=== PATIENT | male | born 1985 | race Caucasian/White ===

== ENCOUNTER 2024-12-27 13:31 | Outpatient (CLI) | payer OTHER ==
[2024-12-27 14:25] LABS: LEUKOCYTE ESTERASE ,URINE NEGATIVE (Neg); MEAN PLATELET VOLUME 8.3 FL (7.4-10.4); NITRITES, URINE NEGATIVE (Neg); OCCULT BLOOD,URINE NEGATIVE (Neg); RED CELL DISTRIBUTION WIDTH 14.3 % (11.5-14.5)
[2024-12-27 14:26] LABS: UA COLLECTION TYPE CLN CATCH MIDSTREAM
--- NOTE | 2024-12-27 14:34 | RADIOLOGY REPORT ---
CLINICAL INDICATION: PAIN OF LEFT PATELLA, RIGHT ELBOW PAIN,RIGHT SHOULDER PAIN TECHNIQUE: 3 radiographic views of the right elbow are were obtained. Comparison: None FINDINGS/IMPRESSION: There is no evidence of acute fracture or dislocation. The visualized joint space is well maintained. The alignment is anatomical. There is no radiopaque foreign body.
--- NOTE | 2024-12-27 14:36 | RADIOLOGY REPORT ---
CLINICAL INDICATION: PAIN OF LEFT PATELLA, RIGHT ELBOW PAIN,RIGHT SHOULDER PAIN TECHNIQUE: 3 radiographic views of the right shoulder were obtained. Comparison: None FINDINGS/IMPRESSION: There is no evidence of acute fracture or dislocation. The visualized joint space is well maintained. The alignment is anatomical. There is no radiopaque foreign body.
--- NOTE | 2024-12-27 14:40 | RADIOLOGY REPORT ---
EXAM: DI KNEE 3 VWS CLINICAL INDICATION: PAIN OF LEFT PATELLA, RIGHT ELBOW PAIN,RIGHT SHOULDER PAIN TECHNIQUE: DI KNEE 3 VWS Comparison: None FINDINGS/IMPRESSION: There is no evidence of acute fracture or dislocation. Moderate left knee osteoarthritis. The alignment is anatomical. There is no radiopaque foreign body.
[2024-12-27 14:46] LABS: CHOL/HDL RATIO 4.4 (0.00-4.99); CREATININE 0.75 MG/DL (0.60-1.10); LDL CHOLESTEROL 125 MG/DL (50-100); TOTAL CARBON DIOXIDE 33.0 MMOL/L (24-32); eGFR > 90 ML/MIN
[2024-12-29 13:12] LABS: TESTOSTERONE, SERUM 383 ng/dL (264-916)
[2025-01-01 05:13] LABS: TESTOSTERONE, FREE, DIRECT 10.1 pg/mL (8.7-25.1)
== END 2024-12-27 23:59 | disposition home or self-care (01) ==
LOC: RAD 13:31
PROVIDERS: ATTEND Nurse Practitioner Family
DX: M17.12 Unilateral primary osteoarthritis, left knee (principal); M25.562 Pain in left knee; M25.521 Pain in right elbow; M25.511 Pain in right shoulder; E78.5 Hyperlipidemia, unspecified; J30.89 Other allergic rhinitis; G71.29 Other congenital myopathy; G89.29 Other chronic pain; R53.83 Other fatigue; H05.823 Myopathy of extraocular muscles, bilateral; Z86.69 Personal history of other diseases of the nervous system and sense organs; Z00.01 Encounter for general adult medical examination with abnormal findings
CPT/HCPCS: 36415; 73030; 73080; 73562; 80053; 80061; 81003; 82785; 84402; 84403; 84439; 84443; 85025; 86003